=== PATIENT | male | born 1940 | race Caucasian/White ===

== ENCOUNTER 2019-12-29 14:32 | Outpatient (CLI) | payer MEDICARE ==
--- NOTE | 2019-12-29 15:18 | CT ---
CT BRAIN WITHOUT CONTRAST: DATE: 12/29/2019 HISTORY: TIA, atherosclerotic vascular disease, memory problems. FINDINGS: No evidence of acute infarct, hemorrhage, midline shift, or abnormal extra-axial fluid collections ar e seen. The ventricular size is appropriate and the basilar cisterns are patent. There are changes of chronic small vessel ischemic disease in the periventricular white matter. The bony calvarium is int act. The visualized paranasal sinuses and mastoid air cells are well aerated. IMPRESSION: No CT evidence of acute intracranial process. POS: [facility]
== END 2019-12-29 14:33 | disposition home or self-care (01) ==
LOC: BICCT 14:32
PROVIDERS: ATTEND Internal Medicine Cardiovascular Disease
DX: I25.118 Atherosclerotic heart disease of native coronary artery with other forms of angina pectoris (principal)
CPT/HCPCS: 70450

== ENCOUNTER 2020-07-30 21:01 | Inpatient (IN) | payer MEDICARE ==
[~2020-07-30 21:01] MED LIST: Iopamidol-370 76% 500 ML 1 ML ONE
[2020-07-30] MEDS ORDERED: Ondansetron PF 4 MG/2 ML Vial ONE (21:58)
[2020-07-30 22:02] LABS: #Basophils 0.1 thou/uL (0.0-0.2); #Eosinphils 0.1 thou/uL (0.0-0.7); #Lymphocytes 1.7 thou/uL (1.20-3.40); #Neutrophils 10.9 thou/uL (1.40-6.50); %Basophils 0.5 % (0.0-1.0); %Eosinophils 0.8 % (0.0-10.0); %Lymphocytes 12.3 % (21.0-51.0); %Monocytes 7.5 % (0.0-10.0); %Neutrophils 78.9 % (42.0-75.0); Hemoglobin 16.1 g/dL (14.0-18.0); Mean Corpuscular HGB CONC 32.9 g/dL (32.0-36.0); Mean Corpuscular Hemoglobin 30.1 pg (27.0-31.0); Mean Corpuscular Volume 91.5 fL (78.0-98.0); Mean Platelet Volume 7.8 fL (7.4-10.4); Platelet Count 206 thou/uL (130-400); RBC Distribution Width 11.9 % (11.5-14.5); Red Blood Cell (RBC) Count 5.35 mill/uL (4.70-6.10); White Blood Cell (WBC) Count 13.9 thou/uL (4.8-10.8)
[2020-07-30 22:21] LABS: ALT (SGPT) 49 U/L (8-55); AST (SGOT) 30 U/L (5-34); Alkaline Phosphatase 56 U/L (40-110); Anion Gap 14 mmol/L (10-20); BUN (Urea Nitrogen) 23 mg/dL (8.4-25.7); Bilirubin, Total 0.6 mg/dL (0.2-1.2); Calc. Creatinine Clearance 0 mL/min (70-130); Calcium 9.5 mg/dL (7.8-10.44); Carbon Dioxide 30 mmol/L (23-31); Chloride 102 mmol/L (98-107); Globulin 3.3 g/dL (2.4-3.5); Glucose 107 mg/dL (83-110); Lipase 61 U/L (8-78); Potassium 4.8 mmol/L (3.5-5.1); Protein, Total 7.3 g/dL (5.8-8.1); Sodium 141 mmol/L (136-145)
[2020-07-30] MEDS ORDERED: Morphine 4 MG/ML VIAL ONE (22:31)
--- NOTE | 2020-07-30 23:12 | CT ---
CT Abdomen Pelvis W Con History: Abdominal pain with nausea and vomiting Comparison: None. Findings: Mild atelectasis within the lung bases. No pericardial effusion. Small hepatic segment 8 an d 2 cysts. Mild distention of the stomach. Normal proximal small bowel rotation. Large calculus within the right renal pelvis measuring up to 11 mm with inflammatory stranding of the renal pelvis and proximal ureter. Minimal right hydronephrosis. Remainder of the right ureter is without stone. Remainder of the right renal collecting system and left renal collecting systems are w ithout stones. Extensive atherosclerotic plaque throughout the aortoiliac system. Celiac trunk and superior mesenter ic arteries are patent. No aneurysmal dilatation. Moderate diverticular disease sigmoid colon without active inflammation. Appendix is visualized and i s normal. Few mildly distended mid and distal small bowel loops measuring up to 2.9 cm to level of the right lo wer quadrant of the abdomen. Mild mucosal hyperenhancement with few ileal bowel loops. No free intraperitoneal gas or fluid. Impression: 1. Low-grade dilatation of the mid and distal small bowel up to 2.9 cm to level of the right lower qu adrant with mild mucosal hyperenhancement of the distal ileum could be sequelae of enteritis causing a low-grade obstruction. 2. Chronic appearing 11 mm stone the right renal pelvis with abnormal thickening of the adjacent colton l pelvic urothelium with minimal asymmetric right-sided hydronephrosis. 3. Moderate diverticular disease sigmoid colon without active inflammation. 4. Benign hepatic cysts. 5. Left calcified pleural plaques with round atelectasis.
[2020-07-31] MEDS ORDERED: Ondansetron PF 4 MG/2 ML Vial IVP PRN (00:20)
[2020-07-31] MEDS ORDERED: Acetaminophen 650 MG Suppository PR PRN (00:20)
[2020-07-31] MEDS ORDERED: metroNIDAZOLE 500 MG/100 ML BAG ONE (00:26)
[2020-07-31 01:04] LABS: Bacteria/HPF None Seen HPF (None Seen); Bilirubin Negative (Negative); Blood, Urine 3+ (Negative); Clarity Clear (Clear); Glucose, Urine (Dipstick) Normal (Negative); Ketone, Urine 10 mg/dL (Negative); Leukocyte Negative Leu/uL (Negative); Nitrite Negative (Negative); Protein, Urine (Dipstick) 30 mg/dL (Neg-Trace); RBC/HPF Greater than 50 HPF (0-3); Squamous Epithelial None Seen HPF (0-3); Urobilinogen Normal mg/dL (Less than 2)
[2020-07-31 01:08] LABS: Specific Gravity, Urine 1.056 (1.002-1.036)
--- NOTE | 2020-07-31 01:15 | PDOC.BPN ---
- Brief Progress Note [id number] dictated
--- NOTE | 2020-07-31 02:18 | HP ---
CHIEF COMPLAINT: Vomiting. HISTORY OF PRESENT ILLNESS: Mr. Murphy is a 80-year-old male with past medical history of atrial fibrillation on anticoagulant, TIA, hypertension, hyperlipidemia, among others, presents to the emergency room with abdominal discomfort and vomiting prior to arrival. Workup in the emergency room including imaging studies, patient was found to have low-grade dilatation of the mid and distal small bowel up to 2.9 cm to the level of the right lower quadrant with mild mucosal hyperenhancement of the distal ileum, could be a sequela of enteritis causing low-grade obstruction. Patient has a chronic appearing 11 mm stone in the right renal pelvis with abnormal thickening of the adjacent renal pelvic urothelium with minimal asymmetric right sided hydronephrosis. Lab work including electrolytes, kidney function, unremarkable. Patient had elevated WBC count of 13.9. Patient was given IV antibiotics in the emergency room and being admitted to the hospital for further management. PAST MEDICAL HISTORY: 1. Atrial fibrillation. 2. Multiple TIAs. 3. Hypertension. 4. Hyperlipidemia. PAST SURGICAL HISTORY: Quadruple bypass, heart monitor. SOCIAL HISTORY: Denies smoking, alcohol drinking, or drug abuse. FAMILY HISTORY: Reviewed and noncontributory. HOME MEDICATIONS: See home medication reconciliation form for updated medications. REVIEW OF SYSTEMS: Review of 14 systems negative, except what is mentioned in the history of present illness. PHYSICAL EXAMINATION: GENERAL: Patient is awake, alert, in moderate distress. VITAL SIGNS: Blood pressure 138/67, pulse is 60, respiratory rate is 20, temperature 97.9, oxygen saturation is 98% on room air. HEAD: Normocephalic, atraumatic. NECK: Supple. No JVD. CHEST: Fair bilateral air entry. ABDOMEN: Distended, mild tender. Bowel sounds hypoactive. NEUROLOGIC: Awake, alert, oriented, moving extremities. PSYCH: Unable to assess. EXTREMITIES: No clubbing, no cyanosis. GENITOURINARY: No flank tenderness. LABORATORY DATA: As mentioned above in the history of present illness. IMAGING STUDIES: As mentioned above in the history of present illness. ASSESSMENT: 1. Small bowel obstruction? 2. Enteritis. 3. Atrial fibrillation. 4. History of transient ischemic attacks. 5. Hypertension. 6. Hyperlipidemia. PLAN: 1. Admit. 2. Keep the patient n.p.o. 3. IV fluids. 4. IV antibiotics. 5. Consider surgical consultation in a.m. if no improvement in symptoms. 6. Reconcile home medications. 7. DVT prophylaxis appropriate. 8. Expected length of stay, 2 midnights or more. Job ID: [id number]
[2020-07-31 02:49] VITALS: BMI 24.8
[2020-07-31] MEDS: Dextrose 5 %-0.45 % NaCl 1,000 ML IV SCH ×2 (03:37→17:56)
[2020-07-31] MEDS: cefTRIAXone\\ROCEPHIN 1 GM in Sodium Chloride 0.9% 100 ML IVPB SCH (03:37)
[2020-07-31 06:15] LABS: #Eosinphils 0.1 thou/uL (0.0-0.7); #Lymphocytes 1.3 thou/uL (1.20-3.40); #Monocytes 0.8 thou/uL (0.11-0.59); #Neutrophils 6.6 thou/uL (1.40-6.50); %Basophils 0.2 % (0.0-1.0); %Eosinophils 1.2 % (0.0-10.0); %Monocytes 8.7 % (0.0-10.0); %Neutrophils 74.9 % (42.0-75.0); Hemoglobin 14.6 g/dL (14.0-18.0); Mean Corpuscular HGB CONC 32.9 g/dL (32.0-36.0); Mean Corpuscular Hemoglobin 30.6 pg (27.0-31.0); Platelet Count 176 thou/uL (130-400); Red Blood Cell (RBC) Count 4.75 mill/uL (4.70-6.10); White Blood Cell (WBC) Count 8.8 thou/uL (4.8-10.8)
[2020-07-31 06:34] LABS: Anion Gap 13 mmol/L (10-20); BUN (Urea Nitrogen) 20 mg/dL (8.4-25.7); Calc. Creatinine Clearance 80 mL/min (70-130); Calcium 8.8 mg/dL (7.8-10.44); Carbon Dioxide 24 mmol/L (23-31); Chloride 106 mmol/L (98-107); Glucose 126 mg/dL (83-110); Potassium 4.6 mmol/L (3.5-5.1); Sodium 138 mmol/L (136-145)
[2020-07-31] MEDS: metroNIDAZOLE 500 MG in Premix Bag 1 BAG IVPB SCH ×3 (07:53→23:54)
[2020-07-31] MEDS: Famotidine/PF 20 mg/2ml Vial SLOW IVP SCH ×2 (07:53→20:50)
[2020-07-31 09:19] LABS: SARS-CoV-2 MS2 Positive; SARS-CoV-2 N Gene Negative; SARS-CoV-2 S Gene Negative; SARS-CoV-2 by NAA Not Detected (NotDetected); SARS-CoV-2 orf1ab Negative
--- NOTE | 2020-07-31 14:31 | PDOC.BPN ---
- Brief Progress Note Encounter Date: 07/31/20 Patient seen and examined this morning at bedside in no acute distress. States symptoms started rather abruptly a couple of hours after having supper ([place]). States having had intense abdominal pain and episode of nausea and vomiting. Patient has not had a bowel movement in 2 days but is passing gas with no issue. Per patient he suffers from chronic constipation and uses stool softeners daily. Last bowel movement 2 days ago somewhat hard. Unclear if episode is due to simple enteritis/colitis vs partial bowel obstruction. CT scan does show some low grade dilation to mid and distal small bowel with possible enteritis to distal ileum causing low grade obstruction. During my assessment he states his symptoms are currently resolved. On exam his abdomen is soft and non tender with normal to slightly hyperactive bowel sounds. A/P: Presents with episode of abdominal pain, nausea and vomiting. Unclear if episode is due to simple enteritis/colitis vs partial bowel obstruction based on above CT scan results. # Nausea and vomiting: Currently asymptomatic. CT with concerns for low grade SBO. Patient being treated with bowel rest. He is at this point allowed ice chips. Started empirically on IV ABX on admission for treatment of colitis. Surgery consulted by ED provider. # CAD: Will restart patient on his chronic cardiovascular meds including ASA, statin, beta diana. DISPOSITION: Continue with bowel rest, IVF and symptom control. Awaiting surgical evaluation. For rest of details please refer to H&P performed by admitting physician early this morning.
[2020-07-31] MEDS: Ezetimibe 10 MG TAB PO SCH (21:54)
[2020-07-31] MEDS: Aspirin 81 mg Enteric Coated Tablet PO SCH (21:54)
[2020-07-31] MEDS: Rosuvastatin 20 MG TAB PO SCH (21:54)
[2020-07-31] MEDS: Propranolol HCl 20 MG TAB PO SCH (21:55)
[2020-08-01] MEDS: cefTRIAXone\\ROCEPHIN 1 GM in Sodium Chloride 0.9% 100 ML IVPB SCH (02:03)
[2020-08-01] MEDS: Dextrose 5 %-0.45 % NaCl 1,000 ML IV SCH ×3 (05:03→20:03)
[2020-08-01 06:07] LABS: #Eosinphils 0.1 thou/uL (0.0-0.7); #Lymphocytes 1.7 thou/uL (1.20-3.40); #Monocytes 0.6 thou/uL (0.11-0.59); #Neutrophils 3.5 thou/uL (1.40-6.50); %Basophils 0.4 % (0.0-1.0); %Eosinophils 1.9 % (0.0-10.0); %Lymphocytes 28.9 % (21.0-51.0); %Monocytes 10.1 % (0.0-10.0); %Neutrophils 58.7 % (42.0-75.0); Hemoglobin 15.5 g/dL (14.0-18.0); Mean Corpuscular HGB CONC 33.7 g/dL (32.0-36.0); Mean Corpuscular Hemoglobin 31.6 pg (27.0-31.0); Mean Corpuscular Volume 93.7 fL (78.0-98.0); Mean Platelet Volume 7.7 fL (7.4-10.4); Platelet Count 166 thou/uL (130-400)
[2020-08-01 06:24] LABS: Anion Gap 11 mmol/L (10-20); BUN (Urea Nitrogen) 10 mg/dL (8.4-25.7); Calc. Creatinine Clearance 86 mL/min (70-130); Carbon Dioxide 25 mmol/L (23-31); Chloride 108 mmol/L (98-107); Sodium 140 mmol/L (136-145)
[2020-08-01 06:25] LABS: Calcium 8.5 mg/dL (7.8-10.44); Glucose 111 mg/dL (83-110)
[2020-08-01] MEDS: Famotidine/PF 20 mg/2ml Vial SLOW IVP SCH (08:05)
[2020-08-01] MEDS: metroNIDAZOLE 500 MG in Premix Bag 1 BAG IVPB SCH ×2 (08:06→15:30)
[2020-08-01] MEDS: Propranolol HCl 20 MG TAB PO SCH ×2 (08:06→20:03)
[2020-08-01] MEDS ORDERED: HYDROcodone/Acetaminophen 5/325 mg Tablet PO PRN (08:19)
[2020-08-01] MEDS ORDERED: Morphine 2 MG/ML VIAL SLOW IVP PRN (08:19)
--- NOTE | 2020-08-01 14:14 | PDOC.HOSPP ---
- Subjective Encounter Date: 08/01/20 Subjective: Seen and examined at bedside in no acute distress. Still refers some mild pain to left upper/lower quadrants with no significant nausea. Has been tolerating ice chips. Continues to pass gas but no BM yet. Does tell me he has a history of chronic constipation and usually needs of stool softener to move his bowels. Tells me it is not unusual for him to go 3-4 days without BM. On exam his abdomen is benign, soft with very mild tenderness, positive bowel sounds, no rigidity or guarding. - Objective Vital Signs & Weight: Vital Signs (12 hours) Temp Pulse Resp BP Pulse Ox 08/01/20 11:31 97.8 F 59 L 14 117/66 97 08/01/20 08:05 98 08/01/20 07:31 98 F 54 L 12 150/70 H 98 08/01/20 04:16 97.7 F 57 L 16 126/69 99 Weight Weight 183 lb 4.8 oz I&O: 07/31/20 08/01/20 08/02/20 06:59 06:59 06:59 Intake Total 2400 Balance 2400 Result Diagrams: 08/01/20 05:30 08/01/20 05:30 Hospitalist ROS - Review of Systems Constitutional: denies: fever, chills, sweats, weakness, malaise, other Respiratory: denies: cough, dry, shortness of breath, hemoptysis, SOB with exce rtion, pleuritic pain, sputum, wheezing, other Cardiovascular: denies: chest pain, palpitations, orthopnea, paroxysmal noc. dyspnea, edema, light headedness, other Gastrointestinal: reports: abdominal pain, constipation. denies: nausea, vomiting Genitourinary: denies: dysuria, frequency, incontinence, hematuria, retention, other Musculoskeletal: denies: neck pain, shoulder pain, arm pain, back pain, hand pain, leg pain, foot pain, other - Medication Medications: Active Medications Generic Name Dose Route Start Last Admin Trade Name Freq PRN Reason Stop Dose Admin Aspirin 81 mg 07/31/20 21:00 07/31/20 21:54 Aspirin 81 Mg Enteric Coated Tablet PO 81 mg HS CHER Administration Ezetimibe 10 mg 07/31/20 21:00 07/31/20 21:54 Ezetimibe 10 Mg Tab PO 10 mg HS CHER Administration Famotidine 20 mg 07/31/20 09:00 08/01/20 08:05 Famotidine/Pf 20 Mg/2ml Vial SLOW IVP 20 mg Q12HR CHER Administration Dextrose/Sodium Chloride 1,000 mls @ 75 mls/hr 07/31/20 01:00 08/01/20 05:03 D5 1/2 Ns IV 1,000 mls .[id number] CHER Administration Ceftriaxone Sodium 1 gm/ 100 mls @ 200 mls/hr 07/31/20 02:00 08/01/20 02:03 Sodium Chloride IVPB 100 mls 0200 CHER Administration Metronidazole 500 mg/ Device 100 mls @ 100 mls/hr 07/31/20 08:00 08/01/20 08:06 IVPB 100 mls 0800,1600,2359 CHER Administration Isosorbide Mononitrate 30 mg 08/01/20 09:00 08/01/20 08:06 Isosorbide Mononitrate Er 30 Mg Tab PO 30 mg DAILY CHER Administration Propranolol HCl 20 mg 07/31/20 21:00 08/01/20 08:06 Propranolol Hcl 20 Mg Tab PO Not Given BID CHER Rosuvastatin Calcium 40 mg 07/31/20 21:00 07/31/20 21:54 Rosuvastatin 20 Mg Tab PO 40 mg HS CHER Administration - Exam General Appearance: NAD, awake alert Eye: PERRL, anicteric sclera ENT: normocephalic atraumatic, no oropharyngeal lesions, moist mucosa Neck: supple, symmetric, no JVD, no thyromegaly, no lymphadenopathy, no carotid bruit Heart: RRR (Borderline bradycardia), no murmur, no gallops, no rubs, normal peripheral pulses Respiratory: CTAB, no wheezes, no rales, no ronchi, normal chest expansion, no tachypnea, normal percussion Gastrointestinal: soft, non-distended, normal bowel sounds, no palpable masses, no hepatomegaly, no guarding, no rigidity Hosp A/P - Plan old records reviewed/req A/P: Presents with episode of abdominal pain, nausea and vomiting. Unclear if episode is due to simple enteritis/colitis vs partial bowel obstruction based on CT scan results. # Nausea and vomiting: Currently asymptomatic. CT with concerns for low grade SBO. Patient started on bowel rest, seems improved. Refers residual tenderness but no nausea or vomiting. Will be advancing diet to clears. Continue on IV ABX on admission for treatment of colitis. Surgery consulted by ED provider. # Constipation: No BM for a couple of days. Per patient this is not complete ly out of the ordinary as he sometimes goes 3-4 days without BM. He continues to pass gas and is without significant abd distention. Will hold off and laxative/stool softeners for now and see if patient can evacuate naturally. If constipation persist will try stool softener as long as his history and exam remains benign. # Diverticulosis: Doubt acute diverticulitis. He is being covered empirically for colitis with broad spectrum ABX. # CAD: Will restart patient on his chronic cardiovascular meds including ASA, statin, beta diana. DISPOSITION: Advance diet to clears. IVF and symptom control. Continue with inpatient care.
[2020-08-01] MEDS ORDERED: Acetaminophen 500 MG TAB PO PRN (18:44)
[2020-08-01] MEDS ORDERED: traMADol HCl 50 MG TAB PO PRN (18:44)
[2020-08-01] MEDS ORDERED: Ibuprofen 600 MG TAB PO PRN (18:44)
[2020-08-01] MEDS: Aspirin 81 mg Enteric Coated Tablet PO SCH (20:03)
[2020-08-01] MEDS: Ezetimibe 10 MG TAB PO SCH (20:03)
[2020-08-01] MEDS: Rosuvastatin 20 MG TAB PO SCH (20:03)
--- NOTE | 2020-08-01 23:43 | CON ---
DATE OF CONSULTATION: HISTORY OF PRESENT ILLNESS: Vic Murphy is a 80-year-old male, who lives with his in [place]. The patient is independently active. He reports that two days ago he began having central abdominal pain, one bout of vomiting before he called the ambulance to taken to the emergency room. He has not had any fever. He did pass some gas today. He has not had any abdominal x-rays in the past. He states his has been trying to encourage him to have a colonoscopy, but he has never had one. He states he has bowel movements every 2-4 days. On admission, 07/30/2020, the patient had a CAT scan of the abdomen and pelvis revealing low-grade dilatation in the mid distal small bowel up to 2.9 cm in the right lower quadrant with some mild mucosal hyperenhancement in the distal ileum, chronic 11 mm stone in the right renal pelvis, benign hepatic cyst, some pleural plaquing, round atelectasis, but no other significant findings. On admission, his white count was 13, subsequently today it is 6, hemoglobin 16, today is 15. His basic metabolic profile is essentially unremarkable. Serology negative for COVID. He was hemoconcentrated on arrival, but has been hydrated since. Since being in the hospital, he has been afebrile. Vital signs normal. Heart rate in the 50s and low 60s. The patient states he is still having some mild discomfort in central abdomen, but he has passed gas today. ALLERGIES: NONE. TOBACCO: None. ALCOHOL: None. MEDICATIONS: At home, he is takin. Zetia. 2. Vitamin D3. 3. Aspirin. 4. Magnesium. 5. Crestor. 6. Zestril. 7. Inderal. 8. Imdur. Medications not available. Emergency Room notes list medications: 1. Vitamin D3. 2. Magnesium. 3. Baby aspirin. 4. Zetia. 5. Pravastatin. 6. Propranolol. 7. Isosorbide. 8. Lisinopril. PAST SURGICAL HISTORY: Coronary artery bypass grafting in 2005. No other surgeries. PAST MEDICAL HISTORY: Stable for coronary artery disease, asymptomatic. Nurses on the floor report that he has been forgetful at times. Past medical history recorded as atrial fibrillation, history of TIAs, hypertension, hyperlipidemia. FAMILY HISTORY: Noncontributory. PHYSICAL EXAMINATION: VITAL SIGNS: 6 foot, 183 pounds, 24 BMI. 97.8, 64, 128/67. HEAD, EARS, EYES, NOSE, AND THROAT: Unremarkable. LUNGS: Clear to auscultation. CARDIAC: Regular rate and rhythm without murmur or gallop. ABDOMEN: Soft. Nontympanitic, nondistended, nontender. No obvious hernias. EXTREMITIES: Unremarkable. LYMPHATIC: Lymphadenopathy absent in groin, axilla, or neck. SKIN: Color normal. ASSESSMENT AND PLAN: Abdominal pain of uncertain etiology. Patient does drink well water, lives in [place]. He may have some cognitive impairment from past TIAs and age. His is not present to discuss. At this point, I do not think there is an immediate surgical problem and he is tolerating liquids. He is passing flatus. Would order abdominal x-rays, advancing to full liquid diet. I would avoid narcotics and will stop the hydrocodone. He has been started on Flagyl, and I am not sure what we are treating perhaps a gastroenteritis, although he has not had diarrhea. Would change his parenteral PPI to an oral PPI. He could be treated with Tylenol, Motrin or Ultram or in combination. We will obtain abdominal x-rays tomorrow and make further recommendations. Job ID: [id number]
[2020-08-02] MEDS: metroNIDAZOLE 500 MG in Premix Bag 1 BAG IVPB SCH ×3 (03:53→12:49)
[2020-08-02] MEDS: cefTRIAXone\\ROCEPHIN 1 GM in Sodium Chloride 0.9% 100 ML IVPB SCH (04:02)
[2020-08-02 05:36] LABS: #Eosinphils 0.1 thou/uL (0.0-0.7); #Lymphocytes 1.5 thou/uL (1.20-3.40); #Monocytes 0.6 thou/uL (0.11-0.59); #Neutrophils 4.1 thou/uL (1.40-6.50); %Basophils 0.4 % (0.0-1.0); %Eosinophils 0.8 % (0.0-10.0); %Lymphocytes 24.4 % (21.0-51.0); %Monocytes 9.8 % (0.0-10.0); %Neutrophils 64.6 % (42.0-75.0); Hemoglobin 13.6 g/dL (14.0-18.0); Mean Corpuscular Hemoglobin 31.4 pg (27.0-31.0); Mean Corpuscular Volume 92.3 fL (78.0-98.0); Mean Platelet Volume 7.7 fL (7.4-10.4); Platelet Count 161 thou/uL (130-400); RBC Distribution Width 11.9 % (11.5-14.5); Red Blood Cell (RBC) Count 4.32 mill/uL (4.70-6.10); White Blood Cell (WBC) Count 6.3 thou/uL (4.8-10.8)
[2020-08-02 05:57] LABS: Anion Gap 13 mmol/L (10-20); BUN (Urea Nitrogen) 9 mg/dL (8.4-25.7); Calc. Creatinine Clearance 80 mL/min (70-130); Calcium 8.1 mg/dL (7.8-10.44); Carbon Dioxide 24 mmol/L (23-31); Chloride 109 mmol/L (98-107); Glucose 95 mg/dL (83-110); Potassium 3.9 mmol/L (3.5-5.1); Sodium 142 mmol/L (136-145)
[2020-08-02 07:44] VITALS: TEMP 97.5
[2020-08-02] MEDS ORDERED: Magnesium Citrate 300 ML BOT PO SCH (08:45)
[2020-08-02] MEDS ORDERED: Polyethylene Glycol 3350 17 GM Packet PO SCH (09:00)
[2020-08-02] MEDS: Propranolol HCl 20 MG TAB PO SCH (09:15)
--- NOTE | 2020-08-02 10:02 | RAD ---
ABDOMEN 2 VIEWS AND CHEST 1 VIEW: HISTORY: Followup abdomen and pelvic CT scan from 07/30/2020. FINDINGS: CHEST 1 VIEW: Postop midline sternotomy. Loop recorder overlying the left chest. Pleural and parenchymal opacity changes in the left base, evidence for some chronic change. No evidence for acute process in the [facility]ish[facility]. FLAT AND UPRIGHT ABDOMEN VIEWS: Flat and upright abdomen views demonstrate stable oval right renal calculus measuring 0.8 x 1.5 cm. Gas and fecal material throughout the colon including the rectum. Mildly dilated loops of small mona l with some air fluid levels which appear to be less distended than on the prior CT. IMPRESSION: No significant acute process in the chest. Minimally dilated small bowel loops with air fluid levels, less distended than on prior CT. Stable right renal calculus. POS: [facility]
--- NOTE | 2020-08-02 12:46 | PDOC.HOSPP ---
- Subjective Encounter Date: 08/02/20 Subjective: Seen and examined at bedside. Denies any nausea, vomiting or abdominal pain. Continues to pass gas but has not had a bowel movement. Repeat X-ray abdomen appears to show mildly dilated small bowel with air/fluid levels with overall some improvement on distention when compared with CT scan on 07-30-20. - Objective Vital Signs & Weight: Vital Signs (12 hours) Temp Pulse Resp BP Pulse Ox 08/02/20 11:03 97.5 F L 62 16 147/67 H 98 08/02/20 08:10 97 08/02/20 07:40 97.5 F L 60 16 138/63 97 08/02/20 03:57 98.2 F 60 16 120/62 97 Weight Weight 183 lb 4.8 oz I&O: 08/01/20 08/02/20 08/03/20 06:59 06:59 06:59 Intake Total 2400 2850 Balance 2400 2850 Result Diagrams: 08/02/20 05:12 08/02/20 05:12 Hospitalist ROS - Review of Systems Constitutional: denies: fever, chills, sweats, weakness, malaise, other Respiratory: denies: cough, dry, shortness of breath, hemoptysis, SOB with excertion, pleuritic pain, sputum, wheezing, other Cardiovascular: denies: chest pain, palpitations, orthopnea, paroxysmal noc. dyspnea, edema, light headedness, other Gastrointestinal: reports: constipation. denies: nausea, vomiting, abdominal pain, diarrhea Neurological: denies: weakness, numbness, incoordination, change in speech, confusion, seizures, other - Medication Medications: Active Medications Generic Name Dose Route Start Last Admin Trade Name Freq PRN Reason Stop Dose Admin Aspirin 81 mg 07/31/20 21:00 08/01/20 20:03 Aspirin 81 Mg Enteric Coated Tablet PO 81 mg HS CHER Administration Ezetimibe 10 mg 07/31/20 21:00 08/01/20 20:03 Ezetimibe 10 Mg Tab PO 10 mg HS CHER Administration Dextrose/Sodium Chloride 1,000 mls @ 75 mls/hr 07/31/20 01:00 08/01/20 20:03 D5 1/2 Ns IV 1,000 mls .[id number] CHER Administration Metronidazole 500 mg/ Device 100 mls @ 100 mls/hr 08/02/20 04:00 08/02/20 04:01 IVPB 100 mls 0400,1200,2000 CHER Administration Isosorbide Mononitrate 30 mg 08/01/20 09:00 08/02/20 09:14 Isosorbide Mononitrate Er 30 Mg Tab PO 30 mg DAILY CHER Administration Pantoprazole Sodium 40 mg 08/02/20 09:00 08/02/20 09:15 Pantoprazole 40 Mg Tab PO 40 mg DAILY CHER Administration Polyethylene Glycol 17 gm 08/02/20 09:00 08/02/20 10:22 Polyethylene Glycol 3350 17 Gm Packet PO 17 gm DAILY CHER Administration Propranolol HCl 20 mg 07/31/20 21:00 08/02/20 09:15 Propranolol Hcl 20 Mg Tab PO 20 mg BID CHER Administration Rosuvastatin Calcium 40 mg 07/31/20 21:00 08/01/20 20:03 Rosuvastatin 20 Mg Tab PO 40 mg HS CHER Administration - Exam General Appearance: NAD, awake alert Eye: PERRL, anicteric sclera Heart: RRR, no murmur, no gallops, no rubs, normal peripheral pulses Respiratory: CTAB, no wheezes, no rales, no ronchi, normal chest expansion, no tachypnea, normal percussion Gastrointestinal: soft, non-tender, non-distended, normal bowel sounds, no guar ding, no rigidity Neurological: cranial nerve grossly intact, normal sensation to touch, no weakness, no focal deficits, no new deficit Psychiatric: normal affect, normal behavior, A&O x 3 Hosp A/P - Plan A/P: Presents with episode of abdominal pain, nausea and vomiting. Unclear if episode is due to simple enteritis/colitis vs partial bowel obstruction based on CT scan results. # Nausea and vomiting: Currently asymptomatic. CT with concerns for low grade SBO. Repeat abd x-ray with some overall improvement. Seen by surgery and diet was further advanced. Being monitored off antibiotics. Avoid narcotics. # Constipation: No BM for a few days. Per patient this is not completely out of the ordinary as he sometimes goes 3-4 days without BM. He continues to pass gas and is without significant abd distention. Stool softeners have been initiated. # Diverticulosis: Doubt acute diverticulitis. He was given several days of IV ABX. Will continue to monitor. # CAD: Continue his chronic cardiovascular meds including ASA, statin, beta diana. DISPOSITION: Continue to advance diet. IVF and symptom control. Surgical team follows.
--- NOTE | 2020-08-02 15:14 | PDOC.DS.DS ---
Provider - Provider Date of Admission: 07/31/20 00:29 Date of Discharge: 08/02/20 Admitting Provider: Cole Fierro MD Consultations: General Surgery Primary Care Physician: Jacky Blankenship MD Course - Hospital Course Hospital Course: "Patient seen and examined this morning at bedside in no acute distress. States symptoms started rather abruptly a couple of hours after having supper ([place]). States having had intense abdominal pain and episode of nausea and vomiting. Patient has not had a bowel movement in 2 days but is passing gas with no issue. Per patient he suffers from chronic constipation and uses stool softeners daily. Last bowel movement 2 days ago somewhat hard. Unclear if episode is due to simple enteritis/colitis vs partial bowel obstruction. CT scan does show some low grade dilation to mid and distal small bowel with possible enteritis to distal ileum causing low grade obstruction." Patient was admitted for observation and treatment of acute symptoms. He was initially started on IV ABX for possible colitis as well as started on bowel rest. His symptoms improved/resolved quickly hence colitis and obstruction were unlikely to be the cause. He was advanced to regular diet and given laxative which was successful in inducing several bowel movements after which patient referred improvement. He was seen by surgical team and cleared for discharge. He is being discharged with indications to follow up with his PCP and to consider future colonoscopy given his long history of constipation and given the fact that he has never had a surveillance study. Patient is medically stable to transition his care to the outpatient basis. Resuscitation Status: 07/31/20 00:20 Resuscitation Status Routine Resuscitation Status: FULL: Full Resuscitation - Labs Lab Results: 08/02/20 05:12 08/02/20 05:12 Abnormal Lab Results - Last 48 hrs 08/01/20 05:30: Chloride 108 H 08/01/20 05:30: MCH 31.6 H, Monocytes % 10.1 H, Monocytes # 0.6 H 08/02/20 05:12: Chloride 109 H 08/02/20 05:12: RBC 4.32 L, Hgb 13.6 L, Hct 39.8 L, MCH 31.4 H, Monocytes # 0.6 H - Physical Exam Vitals: Vital Signs (12 hours) Temp Pulse Resp BP Pulse Ox 08/02/20 11:03 97.5 F L 62 16 147/67 H 98 08/02/20 08:10 97 08/02/20 07:40 97.5 F L 60 16 138/63 97 08/02/20 03:57 98.2 F 60 16 120/62 97 Weight Weight 183 lb 4.8 oz Physical Exam: The patient was seen and examined on the day of discharge. Problem - Discharge Plan Assessment: A/P: Presents with episode of abdominal pain, nausea and vomiting. Unclear if episode is due to simple enteritis/colitis vs partial bowel obstruction based on CT scan results. # Nausea and vomiting: Currently asymptomatic. CT with concerns for low grade SBO. Repeat abd x-ray with some overall improvement. Seen by surgery and diet was further advanced. Given laxatives which successfully induced BM after which patient felt improvement. Symptoms likely in part related to constipation. Cleared for discharge by surgery. Needs to follow up as outpatient for cons ideration of colonoscopy given that patient has never had surveillance study. # Constipation: No BM for a few days prior to admission. Per patient this is not completely out of the ordinary as he sometimes goes 3-4 days without BM. Given laxatives leading to several BMs and resolution of symptoms. Recommended follow up with PCP for possible referral to GI for colonoscopy. # Diverticulosis: Doubt acute diverticulitis. He was given several days of IV ABX. Outpatient follow up with surgery if pain returns. Cleared for discharge by surgery. # CAD: Continue his chronic cardiovascular meds including ASA, statin, beta diana. Plan - Discharge Medications Home Medications: Medication Instructions Recorded Confirmed Type Lisinopril [Zestril] 5 mg PO HS 07/29/15 07/31/20 History Isosorbide Mononitrate [Imdur ER] 30 mg PO DAILY 08/01/15 07/31/20 History Aspirin [Ecotrin Low Strength] 81 mg PO HS 07/31/20 07/31/20 History Cholecalciferol (Vitamin D3) 1 tab PO HS 07/31/20 07/31/20 History [Vitamin D3] Ezetimibe [Zetia] 10 mg PO HS 07/31/20 07/31/20 History Magnesium Oxide [Magnesium] 500 mg PO HS 07/31/20 07/31/20 History Propranolol [Inderal] 20 mg PO BID 07/31/20 07/31/20 History Rosuvastatin [Crestor] 40 mg PO HS 07/31/20 07/31/20 History Acetaminophen [Tylenol Extra 1,000 mg PO Q6H PRN tab 08/02/20 Rx Strength] Ibuprofen [Motrin] 600 mg PO Q6H PRN tab 08/02/20 Rx Polyethylene Glycol 3350 [Miralax] 17 gm PO DAILY pk 08/02/20 Rx Allergies: No Known Allergies Allergy (Verified 11/13/19 05:53) - Discharge Instructions Discharge Instructions:: Outpatient appointment with GI - colonoscopy - Follow up Plan Referrals: Moy Mulligan MD [Active] - (follow up as needed for persistent or recurrent pain) Jacky Blankenship MD [Primary Care Provider] - Disposition: HOME Quality - Care Measures CORE MEASURES:: N/A
[2020-08-02 15:33] VITALS: BP 119/65
--- NOTE | 2020-08-02 16:44 | PRG ---
DATE OF SERVICE: 08/02/2020 SUBJECTIVE: Vic Murphy is doing well. He is given magnesium citrate, and he has multiple bowel movements. He states his pain is much better. The patient's calls to my attention that he has a hernia, and primary care physician has said that this need to be repaired. I have been asked if this could be responsible for his pain. Exam reveals diastasis recti. I looked at pictures from his demonstrating this and I have demonstrated this on the patient. There is no evidence of a hernia on clinical exam or radiologically. Currently, the patient's pain he had when he came in has markedly improved. At this point, I would recommend he see Gastroenterology as an outpatient for screening colonoscopy. The etiology of the patient's pain and dilated loop of bowel is uncertain, probably gastroenteritis. I do not think surgery is indicated. OBJECTIVE: LUNGS: Clear to auscultation. CARDIAC: Regular rate and rhythm without murmur or gallop. ABDOMEN: Soft, nontender, nondistended, non-tympanitic. ASSESSMENT AND PLAN: He has had multiple bowel movements. I would recommend MiraLAX and Citrucel daily. Consideration of laparoscopy in the future could be given. It has been listed in the report that the patient has atrial fibrillation. His says that he does not. The patient has been seen by Dr. 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 The patient has been on and off anticoagulation, and anticoagulation held due to hematuria. Currently not on any anticoagulation. He has a cardiac monitoring device without evidence atrial fibrillation. At this point, I would not recommend any further surgical procedures. I would recommend he return to see me as an outpatient should he have recurrent or persistent abdominal pain. He should also see Gastroenterology as an outpatient. I will be seeing the patient as needed this hospitalization. I have talked to Dr. Gonzalez, his hospitalist MD, and recommended discharge. Job ID: [id number]
== END 2020-08-02 15:39 | disposition home or self-care (01) | DRG 392 ==
LOC: ERS 21:01 → SURG A 07-31 00:29
PROVIDERS: ADMIT Internal Medicine; ATTEND Internal Medicine
DX: K59.09 Other constipation (principal); K56.609 Unspecified intestinal obstruction, unspecified as to partial versus complete obstruction; K57.30 Diverticulosis of large intestine without perforation or abscess without bleeding; I25.10 Atherosclerotic heart disease of native coronary artery without angina pectoris; Z20.828 Contact with and (suspected) exposure to other viral communicable diseases; I48.91 Unspecified atrial fibrillation; E78.00 Pure hypercholesterolemia, unspecified; E78.5 Hyperlipidemia, unspecified; I10 Essential (primary) hypertension; K52.9 Noninfective gastroenteritis and colitis, unspecified; Z86.73 Personal history of transient ischemic attack (TIA), and cerebral infarction without residual deficits; Z95.1 Presence of aortocoronary bypass graft; Z79.899 Other long term (current) drug therapy; Z79.82 Long term (current) use of aspirin
CPT/HCPCS: 36415; 74022; 74177; 80048; 80053; 81003; 81015; 83690; 85025; 87635; 93005; 96365; 96367; 96375; J0696; J0744; J2270; J2405; J3490; Q9967; S0028; U0003